=== PATIENT | female | born 1970 | race Caucasian/White ===

== ENCOUNTER 2019-10-18 11:00 | Outpatient (RCR) | payer BC ==
[~2019-10-18 11:00] MED LIST: COZAAR 25MG25 MG/TAB PO; FLEXERIL5 MG PO; LEXAPRO 10MG10 MG PO; LISINOPRIL20 MG PO; METOPROLOL25 MG PO; SPIRONOLACTONE25 MG PO; ULTRAM 50MG TAB50 MG PO; VALIUM 5MG T5 MG/TAB PO
== END 2019-12-25 | disposition home or self-care (01) ==
LOC: MKS.ESL.PT
DX: M54.41 Lumbago with sciatica, right side (principal); M54.42 Lumbago with sciatica, left side

== ENCOUNTER → 2023-08-26 | Outpatient (CLI) | payer BC ==
[~2023-08-26] MED LIST changes: +Triamcinolone 40 MG/ML 1 ML VIAL IJ SCH
== END ==
LOC: COL.RAD 13:21
DX: M47.816 Spondylosis without myelopathy or radiculopathy, lumbar region (principal)
CPT/HCPCS: J0665; J3301